=== PATIENT | female | born 1960 | race Caucasian/White ===

== ENCOUNTER 2020-12-20 11:12 | Emergency (ER) | payer OTHER ==
[~2020-12-20] VITALS: Ht 147.3 cm; Wt 69.9 kg
[2020-12-20 11:16] VITALS: BP 130/92
--- NOTE | 2020-12-20 11:24 | NUR ---
PATIENT AMBULATED TO BED 07 WITH STEADY GAIT
--- NOTE | 2020-12-20 11:28 | NUR ---
60 Y/O FEMALE BIB FAMILY MEMBER C/O DYSURIA, URINARY FREQUENCY, AND LOWER BACK PAIN X 2 DAYS. DENIES N/V/D. 5/10 LOWER BACK PAIN. STATES SHE TOOK TYLENOL AT 0030 WITH RELIEF OF PAIN. SKIN WAR, DRY, INTACT. VSS. FAMILY AT BEDSIDE. VSS MEDHX: HTN
--- NOTE | 2020-12-20 11:29 | NUR ---
DR ARTIS AT BEDSIDE EVALUATING PATIENT
[2020-12-20] MEDS ORDERED: ACETAMINOPHEN 325 MG TAB PO ONE (11:35)
[2020-12-20] MEDS ORDERED: PYR100 PO (12:09)
[2020-12-20] MEDS ORDERED: CEPH-588 PO (12:09)
[2020-12-20] MEDS ORDERED: cephALEXin 500 MG CAP PO ONE (12:10)
[2020-12-20] MEDS ORDERED: cephALEXin 500 MG CAP ONE (12:14)
[2020-12-20 12:19] VITALS: BP 130/92
--- NOTE | 2020-12-20 12:19 | NUR ---
Patient discharged with v/s stable. Written and verbal after care instructions given and explained. Patient alert, oriented and verbalized understanding of instructions. Ambulatory with steady gait. All questions addressed prior to discharge. ID band removed. Patient advised to follow up with PMD. Rx of KEFLEX AND PYRIDIUM given. Patient educated on indication of medication including possible reaction and side effects. Opportunity to ask questions provided and answered.
== END 2020-12-20 12:19 | disposition home or self-care (01) ==
LOC: MED 11:12
DX: R30.0 Dysuria (principal); R31.9 Hematuria, unspecified; I10 Essential (primary) hypertension
CPT/HCPCS: 81002; 99283